=== PATIENT | male | born 1965 | race Caucasian/White ===

== ENCOUNTER 2020-04-18 10:24 | Outpatient (REF) | payer OTHER, SELFPAY ==
--- NOTE | 2020-04-18 15:58 | XR_ITS ---
EXAMINATION: XR ABDOMEN KUB CLINICAL INDICATION: Renal stone COMPARISON: Previous abdominal ultrasound November 2018 TECHNIQUE: AP view of the abdomen. FINDINGS: Evaluation for renal stone is limited due to overlying bowel gas, particularly on the left. No renal stone is seen. There are several bilateral small pelvic calcifications probably representing calcified phleboliths. Bowel gas pattern and bony structures are unremarkable. XR/XR KUB IMPRESSION: No stone seen.
== END 2020-04-18 10:25 | disposition home or self-care (01) ==
LOC: HO.XRAY 10:24
PROVIDERS: PCP Family Medicine; Visit Provider Urology
DX: N20.0 Calculus of kidney (principal)
CPT/HCPCS: 74018

== ENCOUNTER 2020-05-03 06:11 | Day surgery (SDC) | payer OTHER, SELFPAY ==
[2020-04-24 19:16] VITALS: BMI 26.6
--- NOTE | 2020-05-02 10:35 | HO.ANESPROP2 ---
Documented by User: Kristyn Oneill 05/02/20 10:36 HPI - Anesthesia Eval Consult details Narrative: 54yo M for L ESWL No prev ESWL on record [facility] Past Medical History Medical History Back pain Depression Diabetes Elevated cholesterol Hypertension Surgical History Surgical History History of colonoscopy Social History Social History Smoking Status: Never smoker Second Hand Smoke Exposure: No Use of substances other than those prescribed or required for medical reasons: No Advance Directives: No Advance Directives Information Provided: No Advance Directives on File: No Recently lost weight without trying: No Meds Allergies Allergy/AdvReac Type Severity Reaction Status Date / Time No Known Allergies Allergy Verified 04/18/20 10:26 Home Medications Medication Instructions Recorded Confirmed Type amlodipine 5 mg tablet 5 mg PO DAILY 04/18/20 04/24/20 History bupropion HCl 150 mg tablet,12 hr 150 mg PO QAM 04/18/20 04/24/20 History sustained-release gabapentin 600 mg tablet 600 mg PO DAILY 04/18/20 04/24/20 History insulin glargine 100 unit/mL (3 14 unit SUBCUT BEDTIME 04/18/20 04/24/20 History mL) subcutaneous pen lisinopril 40 mg tablet 40 mg PO DAILY 04/18/20 04/24/20 History metformin 500 mg tablet 500 mg PO BID 04/18/20 04/24/20 History pravastatin 20 mg tablet 20 mg PO DAILY 04/18/20 04/24/20 History Exam Exam Date and Time: May 02, 2020 1035 Height,Weight and Vital Signs: Height 5 ft 8 in Weight 79.379 kg Assessment and Plan Assessment Anesthesia Assessment: Chart Reviewed Documented by User: Eulalia Mojica 05/03/20 07:49 [facility] Past Medical History Medical History Back pain Depression Diabetes Elevated cholesterol Hypertension Surgical History Surgical History History of colonoscopy Social History Social History Smoking Status: Never smoker Second Hand Smoke Exposure: No Use of substances other than those prescribed or required for medical reasons: No Advance Directives: No Advance Directives Information Provided: No Advance Directives on File: No Recently lost weight without trying: No Meds Allergies Allergy/AdvReac Type Severity Reaction Status Date / Time No Known Allergies Allergy Verified 04/18/20 10:26 Home Medications Medication Instructions Recorded Confirmed Type amlodipine 5 mg tablet 5 mg PO DAILY 04/18/20 04/24/20 History bupropion HCl 150 mg tablet,12 hr 150 mg PO QAM 04/18/20 04/24/20 History sustained-release gabapentin 600 mg tablet 600 mg PO DAILY 04/18/20 04/24/20 History insulin glargine 100 unit/mL (3 14 unit SUBCUT BEDTIME 04/18/20 04/24/20 History mL) subcutaneous pen lisinopril 40 mg tablet 40 mg PO DAILY 04/18/20 04/24/20 History metformin 500 mg tablet 500 mg PO BID 04/18/20 04/24/20 History pravastatin 20 mg tablet 20 mg PO DAILY 04/18/20 04/24/20 History Exam Airway Mallampati Class: II TM Dist: >3cm Neck ROM: Full Assessment and Plan Assessment Anesthesia Assessment: Anesthesia Plan Discussed and Chart Reviewed Final Anesthetic Review NPO: Yes ASA Class: II Final Preanesthetic Review: No Changes in Pt Med Stat, Meds/Allgs Chart Reviewed, Consent Obtained/Reviewed and Anes Risks/Benef Reviewed Patient Risk: Low Procedure Risk: Low Assessment/Block/Sedation in SS: Assess/Block/Sedation-SS Anesthetic Plan Anesthetic Plan: MAC: Disposition: Standard PACU
--- NOTE | 2020-05-03 06:30 | XR_ITS ---
EXAMINATION: XR ABDOMEN KUB CLINICAL INDICATION: Left renal stone COMPARISON: Radiograph 04/18/2020 TECHNIQUE: AP view of the abdomen. FINDINGS: Nonobstructive bowel gas pattern. Diffuse stool throughout the colon with large stool burden. No suspicious calcifications overlie the expected position of either kidney or ureter. The presence of extensive stool does limit visualization. No acute osseous abnormality. XR/XR KUB IMPRESSION: Large colonic stool burden. This limits visualization of calcifications. No definite renal or ureteral calculi are seen.
[2020-05-03 06:53] VITALS: BP 153/99; PULSE 73; RESP 18; TEMP 36.1; O2SAT 98
[2020-05-03] MEDS: Lactated Ringers 1,000 ML 100 ML IVCONT (07:02)
[2020-05-03 07:13] LABS: Glucose, Whole Blood 127 mg/dL (60-115)
--- NOTE | 2020-05-03 07:23 | MHC.SHP ---
Pre-Procedural Eval Section A The patient is an INPATIENT: No Changes since office visit: No Cold of Flu in the past 2 weeks, No New Medical Problems, No Changes in Medication and No Patient answered all questions The History & Physical has been completed within 30 days and I have reviewed it.: Yes Section B Chief Complaint: kidney stone Allergies: Allergies Allergy/AdvReac Type Severity Reaction Status Date / Time No Known Allergies Allergy Verified 04/18/20 10:26 Plan Diagnosis/Plan: Unchanged I have reviewed the history and physical and performed a pertinent physical examination on my patient. No changes have occurred unless specified. Left ESWL
--- NOTE | 2020-05-03 08:39 | PM.OP ---
Brief Operative Note Date of Service: 05/03/20 Pre-op diagnosis: Left renal stone Post-op diagnosis: same Procedure: Left ESWL Surgeon: Van Yousif MD Anesthesia: MAC Estimated blood loss (mL): 0 Pathology: none sent Condition: stable Disposition: same day
--- NOTE | 2020-05-03 08:40 | W.PM.OPN ---
Operative Note Operative Note Date of Service: 05/03/20 Narrative: PreOperative Diagnosis: Left Renal stones Post Operative Diagnosis: Left Renal stones Procedure: Left ESWL Surgeon: Dr Van Yousif Anesthesia: mac/sedation Indications for procedure: They understand ESWL may be a staged procedure and subsequent intervention may be required based on imaging after ESWL. They also understand there is a risk of bleeding, infection, damage to adjacent organs. Procedure: After informed consent was verified the patient was brought to the operating room and placed in a supine position. Anesthesia was performed per protocol. Safety pause time-out was performed. Imaging was in the room and laterality confirmed. ESWL was performed. The 1st 500 shocks were performed at 60 hertz. These were performed with increasing power. Once maximum power was reached the rate was increased to 180 hertz. A total of 2500 shocks were given. Fluoroscopy showed stone disintegration. They tolerated procedure well and was transferred to the recovery area upon completion. 8 mm left lower pole stone
[2020-05-03 08:45] VITALS: BP 124/77; PULSE 58; RESP 16; TEMP 37; O2SAT 94
[2020-05-03 09:00] VITALS: BP 113/65; PULSE 55; RESP 20; O2SAT 96
--- NOTE | 2020-05-03 09:28 | HO.POSTANES ---
Post Anesthesia Evaluation Post Anesthesia Evaluation Vital Signs: Vital Signs Temp Pulse Resp BP Pulse Ox 05/03/20 09:00 98.6 F 55 20 113/65 96 05/03/20 08:45 98.6 F 58 16 124/77 94 05/03/20 06:53 97 F 73 18 153/99 H 98 Anesthesia: Monitored Mental Status: Awake Pain Control: Satisfactory Nausea/Vomiting: None Hydration: Adequate Anesthesia-Related Issues: No Anes. Related Issues
== END 2020-05-03 09:30 | disposition home or self-care (01) ==
PROVIDERS: PCP Family Medicine; Visit Provider Urology
PROC: (CPT 50590; principal; 2020-05-03 08:10)
DX: N20.0 Calculus of kidney (principal); I10 Essential (primary) hypertension; E11.9 Type 2 diabetes mellitus without complications; Z79.4 Long term (current) use of insulin; Z79.899 Other long term (current) drug therapy
CPT/HCPCS: 50590; 74018; 82947; J3010

== ENCOUNTER 2020-05-18 16:19 | Outpatient (REF) | payer OTHER, SELFPAY ==
--- NOTE | 2020-05-18 16:21 | US_ITS ---
EXAMINATION: US RETROPERITONEAL LIMITED (RENAL ONLY) CLINICAL INFORMATION: Calculus of kidney. COMPARISON: KUB 10/21/2020 and 04/18/2020. Ultrasound abdomen complete 12/23/2018. TECHNIQUE: Real-time imaging of the kidneys. FINDINGS: RIGHT KIDNEY: 12.8 x 5.6 x 5.4 cm (SAG x AP x TRV). The kidney is normal in size, contour, and echogenicity. Renal cortical thickness is normal. No focal parenchymal lesions or hydronephrosis. There is an echogenic stone in the midpole measuring 0.3 x 0.2 cm. There are a few calcified vessels noted. LEFT KIDNEY: 12.4 x 5.4 x 5.4 cm (SAG x AP x TRV). The kidney is normal in size, contour, and echogenicity. Renal cortical thickness is normal. No focal parenchymal lesions or hydronephrosis. There are small several echogenic stones with the largest echogenic stone midpole measuring 1.0 x 0.5 cm. There are a few scattered calcified vessels visualized. US/US renal BI IMPRESSION: Nonobstructive bilateral echogenic stones. No caliectasis or hydronephrosis seen.
== END 2020-05-18 16:20 | disposition home or self-care (01) ==
LOC: HO.US 16:19
PROVIDERS: Visit Provider Urology
DX: N20.0 Calculus of kidney (principal)
CPT/HCPCS: 76775

== ENCOUNTER 2024-08-23 08:51 | Day surgery (SDC) | payer OTHER, SELFPAY ==
[2024-08-19 13:55] VITALS: BMI 24.6
[2024-08-23 09:02] VITALS: BMI 24.6
[2024-08-23] MEDS: Lactated Ringers 1,000 ML 80 ML IVCONT (09:09)
--- NOTE | 2024-08-23 09:12 | P.CONAN_ITS ---
[facility] Active Problems Active Problems: All Active Problems Nephrolithiasis (Acute) Past Medical History Medical History Back pain Diabetes Depression Elevated cholesterol Hypertension Family History Family history of problems with anesthesia: No Surgical History Surgical History Hx of lithotripsy History of colonoscopy History of Problems with Anesthesia: No Social History Social History (Updated 08/19/24 @ 13:55 by Loan Pelletier RN) Are you a primary healthcare management consultant to a significant other at home: No Do you presently have visiting nurse or other home services: No Patient Tobacco Use Status: Never used Tobacco Second Hand Smoke Exposure: No Have you been hit, kicked, punched, or otherwise hurt by someone within the past year? If so, by whom?: No Are you DNR?: No Advance Directives: No Advance Directives Information Provided: Yes Poor oral hygiene: No Meds Allergies Allergy/AdvReac Type Severity Reaction Status Date / Time No Known Allergies Allergy Verified 08/23/24 09:04 Active Medications: Current Medications Lactated Ringer's (Lr) 1,000 mls @ 80 mls/hr IVCONT .[id number] FADIA Last Admin: 08/23/24 09:09 Dose: 80 mls/hr Sodium Biphosphate/Sodium Phosphate (Sodium Phosphate,Roberts-Dibasic 133 Ml Enema) 133 ml NC ONCE PRN PRN Reason: Poor Colonoscopy Prep Results Home Medications ?Medication ?Instructions ?Recorded ?Confirmed ?Last Taken ?Type amlodipine 5 mg tablet 5 mg PO DAILY 04/18/20 08/19/24 Unknown History bupropion HCl 150 mg tablet,12 hr 150 mg PO QAM 04/18/20 08/19/24 Unknown History sustained-release gabapentin 600 mg tablet 600 mg PO DAILY 04/18/20 08/19/24 Unknown History lisinopril 40 mg tablet 40 mg PO DAILY 04/18/20 08/19/24 Unknown History metformin 500 mg tablet 500 mg PO BID 04/18/20 08/19/24 Unknown History pravastatin 20 mg tablet 20 mg PO DAILY 04/18/20 08/19/24 Unknown History aspirin 81 mg tablet,delayed 81 mg PO DAILY 08/19/24 08/19/24 Unknown History release hydrochlorothiazide 12.5 mg tablet 12.5 mg PO QAM 08/19/24 08/19/24 Unknown H istory semaglutide 1 mg/dose (4 mg/3 mL) 1 mg subcut QWEEK 08/19/24 08/19/24 08/15/24 History subcutaneous pen injector (Ozempic) Exam Height,Weight and Vital Signs: Height 5 ft 8 in Weight 73.482 kg Airway Mallampati Class: II TM Dist: >3cm Neck ROM: Full Assessment and Plan Assessment Anesthesia Assessment: Anesthesia Plan Discussed and Chart Reviewed Final Anesthetic Review Family History of Problems with Anesthesia: No History of Problems with Anesthesia: No NPO: Yes ASA Class: III Final Preanesthetic Review: No Changes in Pt Med Stat, Meds/Allgs Chart Reviewed, Consent Obtained/Reviewed and Anes Risks/Benef Reviewed Patient Risk: Intermediate Procedure Risk: Low Anesthetic Plan Anesthetic Plan: TIVA Disposition: Standard PACU
[2024-08-23 09:19] VITALS: BP 143/90; PULSE 86; RESP 18; TEMP 36.6; O2SAT 99
[2024-08-23 09:19] LABS: Glucose, Whole Blood 107 mg/dL (60-115)
--- OUTSIDE RECORDS SUMMARY | 2024-08-23 09:22 | XMS_ITS | Clinical Summary ---
Author Organization [facility] Address [address] [id number] Care Team Providers Care Cemetery Worker Name Role Phone Kory Dotson MD Primary Care Provider [phone] Guerita North Unavailable Kory Dotson MD Unavailable [phone] Allergies Active Allergy Reactions Criticality Noted Date Comments Seasonal Cough 12/19/2023 Medications buPROPion ER (WELLBUTRIN XL) 150 MG 24 hr tablet 4 Active Coenzyme Q10 (Co Q 10) 100 MG capsule 300 mg. Active Misc Natural Products (Glucosamine Chondroitin MSM) Tab as directed Orally twice a day Active Vitamin E (VITAMIN E) 400 units capsule 1 capsule. Activ e Magnesium 500 MG Cap Take by mouth. Active [place] 450 MG Cap Take 500 mg by mouth. Active Ozempic, 1 MG/DOSE, 4 MG/3ML prefilled pen Inject 1 (one) mg under the skin 1 (one) time per week 9 mL 3 4 07/01/19 26 Active hydroCHLOROthiaz eliana (HYDRODIURIL) 12.5 MG tablet Take one tablet (12.5 mg total) by mouth 1 (one) time each day. 90 tablet 3 4 Active amLODIPine Besylate (NORVASC) 10 MG tablet Take one tablet (10 mg total) by mouth 1 (one) time each day. 90 tablet 3 4 Active Pravastatin Sodium (PRAVACHOL) 20 MG tablet Take one tablet (20 mg total) by mouth 1 (one) time each day. 90 tablet 3 4 Active Lisinopril (PRINIVIL,ZESTRI L) 40 MG tablet Take one tablet (40 mg total) by mouth 1 (one) time each day. 90 tablet 5 Active metFORMIN HCl (GLUCOPHAGE) 500 MG tablet Take one tablet (500 mg total) by mouth 2 (two) times a day with meals. 180 tablet 5 Active Gabapentin (NEURONTIN) 600 MG tablet Take one tablet (600 mg total) by mouth 1 (one) time each day. 90 tablet 5 Active Active Problems Problem Noted Date Diagnosed Date Chronic dermatitis 12/19/2023 Overview (12/19/2023): Scalp lesions. Paresthesia 12/19/2023 Overview (12/19/2023): body generalized. Primary hypertension 12/14/2023 Type 2 diabetes mellitus wit hout complication, without long-term current use of insulin 12/14/2023 Gastroesophageal reflux disease without esophagi tis 12/14/2023 Other hyperlipidemia 12/14/2023 Thrombocytopenia 12/14/2023 Left renal stone 12/14/2023 Overview (12/14/2023): S/p ESWL Social anxiety disorder 12/14/2023 ED (erectile dysfunction) 12/14/2023 Colon cancer screening 12/14/2023 Overview (06/25/2024): 08/2018. Next in [address] Napoles. Scheduled for 07/2024 Encounters Date Type Department Care Team Description 06/25/2024 12:30 PM EST CPE - Comprehensive Physical Exam [facility] Care [address] [place] [phone] Kory Dotson MD Encounter for preventive health examination (Primary Dx); Colon cancer screening; Type 2 diabetes mellitus without complication, without long-term current use of insulin; Primary hypertension 06/21/2024 Refill [facility] [address] [place] [address] Kory Dotson MD Refill Request 06/18/2024 Refill [facility] Care [place] [phone] Kory Dotson MD Refill Request from Last 3 Months Immunizations Name Administration Dates Next Due Influenza,MDCK,trivalent,PF (Flucelvax) 03/19/20 Influenza,seasonal,trivalent ,preservative (FLUZONE MDV) 03/03/2018 Tdap 12/19/2023 Zoster (Shingrix) 03/19/2024,12/19/2023 Family History Medical History Relation Name Comments IG A NEPHROPATHY Brother Heart Disorder Father Heart Disorder Maternal grandfather Heart Disorder Maternal uncle Thyroid Disorder Mother Relation Name Status Comments Brother Alive Father Maternal grandfather Maternal uncle Alive Mother Alive Social History Tobacco Use Types Packs/Day Years Used Date Smoking Tobacco: Never Smokeless Tobacco: Never Tobacco Cessation:Counseling Given: Not Answered Alcohol Use Standard Drinks/Week Comments Yes 0 (1 standard drink = 0.6 oz pur e alcohol) 1 drink a night PHQ-2 Answer Date Recorded PHQ-2 Score 1 06/25/2024 PHQ-9 Answer Date Recorded PHQ-9 Score 1 06/25/2024 Sex and Gender Information Value Date Recorded Sex Assigned at Male 03/18/2024 1:45 PM EST Legal Sex Male 11:56 AM EDT Gender Identity Male 03/18/2024 1:45 PM EST Sexual Orientation Straight 03/18/2024 1: 45 PM EST 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 Not on file Not on file Not on file Last Filed Vital Signs Vital Sign Reading Time Taken Comments Blood Pressure 132/88 06/25/2024 12:29 PM EST Pulse 80 06/25/2024 12:29 PM EST Temperature 36.3 ??C (97.4 ??F) 06/25/2024 12:[address] Respiratory Rate 16 06/25/2024 12:29 PM EST Oxygen Saturation - - Inhaled Oxygen Concentration - - Weight 71.8 kg (158 lb 3.2 oz) 06/25/2024 12:29 PM EST Height 172.7 cm (5' 8 ) 06/25/2024 12:29 PM EST Body Mass Index 24.05 06/25/2024 12:29 PM EST Plan of Treatment Upcoming Encounters Date Type Department Care Team (Latest Contact Info) Description 10/15/2024 3:30 PM EDT Office Visit [facility] [address] [facility] [place] [address] Kory Dotson MD [address] [place] [address] 4 MO F/U-Diabetes 07/01/2025 2:00 PM EST CPE - Comprehensive Physical Exam [facility] [address] [facility] [place] [address] Kory Dotson MD [address] [place] [address] PE Health Maintenance Due Date Last Done Comments Hepatitis C Screening 1965 Eye/Retina Exam 08/03/1985 GFR 08/03/1985 LDL Cholesterol 08/03/1985 Hep B (1 of 3 - 19+ 3-dose series) 08/03/1986 Pneumococcal 50+ years (1 of 2 - PCV) 08/03/1986 Colon Cancer Screening 08/03/2012 COVID-19 Vaccine (2023-2 5 season) 2023 HA1C 07/18/2024 01/19/2024, 12/19/2023 Microalbumin 01/19/2025 01/20/2024 DTaP/Tdap/Td (2 - Td or Tdap) 12/18/2033 12/19/2023 Influenza Completed 03/19/2024, 12/16/2023, 03/03/2018 Zoster (Shingrix) Completed 03/19/2024, 12/19/2023 Physical Discontinued 06/25/2024 HPV Vaccine Aged Out No longer eligi ble based on patient's age to complete this topic Hep A Aged Out No longer eligi ble based on patient's age to complete this topic Hib Aged Out No longer eligi ble based on patient's age to complete this topic Meningococcal ACWY Aged Out No longer eligible based on patient's age to complete this topic Goals Goal Patient Goal Type Associated Problems Recent Progress Patient-Stated? Author Blood Pressure < 140/90 Blood Pressure 132/88(06/25 12:29 PM EST) Jocelynn Ayala MA Note: Above is your goal for blood pressure control. You may be able to prevent, reduce or eliminate the medication required for your blood pressure by regular measurement of your blood pressure at home, since home readings are often more reliable than measurements at the doctor? s office. You can also improve your blood pressure by getting regular exercise, keeping a normal weight, reducing your sodium/salt intake to 2000 mg/day, reducing caffeine and by limiting your alcohol intake. Men should limit consumption to no more than 2 drinks per day (beer, wine, or mixed drinks) and women should limit to one drink per day. Follow the DASH diet, a diet low in fat, cholesterol, red meat, and sweets. It emphasizes fruits, vegetables, and low-fat dairy foods. The DASH diet also includes whole-grain products, fish, poultry, and nuts. HEMOGLOBIN A1C % < 7 Result Component 6.1(01/19/20 12:00 AM EDT) Jocelynn Ayala MA Note: Above is your goal for sugar control. Your risk for future diabetic complications such as blindness and amputation can be reduced by following your diabetic diet plan, and paying careful attention to self-monitoring your blood sugar and blood pressure at home. Please plan to check your blood sugar and blood pressure at the frequency suggested, and bring these numbers with you to your next scheduled visit. If you have difficulty reaching the goals which you have set for your diabetes your PCP can refer to one of our diabetes self-management support programs. A fasting blood sugar below 120 is ideal. Procedures Procedure Name Priority Date/Time Associated Diagnosis Comments ALBUMIN (MICROALBUMIN), RANDOM URINE, WITH CREATININE Routine 01/20/2024 HEMOGLOBIN A1C Routine 01/19/2024 from Last 3 Months or Most Recently Relevant to Health Maintenance Results * ALBUMIN (MICROALBUMIN), RANDOM URINE, WITH CREATININE (01/20/2024) CREATININE (URINE) 90.2 Microalbumin (Urine) 21.9 MICROALBUMIN/CREA T RATIO (URINE) 24.3 01/20/2024 us Unknown Provider LABORATORY Final Result * HEMOGLOBIN A1C (01/19/2024) Hemoglobin A1C 6.1 GLUCOSE MEAN VALUE 01/19/2024 us Unknown Provider LABORATORY Final Result from Last 3 Months or Most Recently Relevant to Health Maintenance Insurance [employer] Care Teams Cemetery Worker Relationship Specialty Start Date End Date Kory Dotson MD [address] [place] [address] PCP - General Family Medicine 08/22/23 Kory Dotson MD [address] [place] [address] PCP - Backup PCP Family Medicine 06/25/24 Guerita North [facility] [address] [place] [id number] Family Medicine 12/19/23 Dr. Ghanshyam Cintron [address] [place] [id number] (Jcpe) Highway Maintainer 06/29/24
--- OUTSIDE RECORDS SUMMARY | 2024-08-23 09:22 | XMS_ITS | Encounter Summary ---
Author Organization [facility] Address [address] [place] [address] Care Team Providers Care Battery Recharger Name Role Phone Kory Dotson MD Primary Care Provider [phone] Guerita North Unavailable Kory Dotson MD Unavailable [phone] Encounter Details Date Type Department Care Team (Late st Contact Info) Description 01/20/2024 Orders Only [facility] Primary Care [address] [place] [address] Kory Dotson MD [address] [place] [address] Social History Tobacco Use Types Packs/Day Years Used Date Smoking Tobacco: Never Smokeless Tobacco: Never Alcohol Use Standard Drinks/Week Comments Yes 0 (1 standard drink = 0.6 oz pur e alcohol) 1 drink a night Sex and Gender Information Value Date Recorded Sex Assigned at Male 03/18/2024 1:45 PM EST Legal Sex Male 11:56 AM EDT Gender Identity Male 03/18/2024 1:45 PM EST Sexual Orientation Straight 03/18/2024 1: 45 PM EST documented as of this encounter Plan of Treatment Upcoming Encounters Date Type Department Care Team (Latest Contact Info) Description 10/15/2024 3:30 PM EDT Office Visit [facility] [address] [place] [address] Kory Dotson MD [address] [place] [address] 4 MO F/U-Diabetes 07/01/2025 2:00 PM EST CPE - Comprehensive Physical Exam [facility] Care [address] [place] [address] Kory Dotson MD [address] [place] [address] PE Scheduled Orders Name Type Priority Associated Diagnoses Orde r Schedule ALBUMIN (MICROALBUMIN), RANDOM URINE, WITH CREATININE Lab Routine Type 2 diabetes mellitus without complication, without long-term current use of insulin Expected: 06/10/2024 (Approximate), Expires: 03/19/2025 HEMOGLOBIN A1C Lab Routine Type 2 diabetes mellitus without complication, without long-term current use of insulin Expected: 06/10/2024 (Approximate), Expires: 03/19/2025 LIPID PANEL WITH REFLEX TO DIRECT LDL Lab Routine Type 2 diabetes mellitus without complication, without long-term current use of insulin Expected: 06/10/2024, Expires: 03/19/2025 BASIC METABOLIC PANEL WITH (GFR) Lab Routine Type 2 diabetes mellitus without complication, without long-term current use of insulin Expected: 06/10/2024, Expires: 03/19/2025 documented as of this encounter Goals Goal Patient Goal Type Associated Problems [...] fasting blood sugar below 120 is ideal. documented as of this encounter Procedures Procedure Name Priority Date/Time Associated Diagnosis Comments ALBUMIN (MICROALBUMIN), RANDOM URINE, WITH CREATININE Routine 01/20/2024 HEMOGLOBIN A1C Routine 01/19/2024 documented in this encounter Results * ALBUMIN (MICROALBUMIN), RANDOM URINE, WITH CREATININE (01/20/2024) CREATININE (URINE) 90.2 Microalbumin (Urine) 21.9 MICROALBUMIN/CREA T RATIO (URINE) 24.3 01/20/2024 us Unknown Provider LABORATORY Final Result * HEMOGLOBIN A1C (01/19/2024) Hemoglobin A1C 6.1 GLUCOSE MEAN VALUE 01/19/2024 us Unknown Provider LABORATORY Final Result documented in this encounter Visit Diagnoses Diagnosis Type 2 diabetes mellitus without complication, without long-term current use of insulin (HCC) documented in this encounter Care Teams Battery Recharger Relationship Specialty Start Date End Date Kory Dotson MD [address] [place], [place] [phone] PCP - General Family Medicine 08/22/23 Kory Dotson MD [address] [place] [address] PCP - Backup PCP Family Medicine 06/25/24 Guerita North [address] [address] Family Medicine 12/19/23 Dr. Ghanshyam Cintron [address] [place] [id number] Assistant Director 06/29/24 documented as of this encounter
--- OUTSIDE RECORDS SUMMARY | 2024-08-23 09:22 | XMS_ITS ---
Author Name [facility] Organization Unknown Encounters Encounter Type Encounter Reason Primary Diagnosis Location Date Ambulatory [facility] 05/30 Ambulatory [facility] 02/27 Ambulatory [facility] 11/27 Ambulatory [facility] 11/26 Care Team Organization Name Specialty Phone Email Start Date End Da te [facility] 2023 [facility] 12/19/2023
--- OUTSIDE RECORDS SUMMARY | 2024-08-23 09:22 | XMS_ITS | Encounter Summary ---
Author Organization [facility] Address [address] [place] [address] Care Team Providers Care Workers Compensation Legal Secretary Name Role Phone Kory Dotson MD Primary Care Provider [phone] Guerita [place] Unavailable Kory Dotson MD Unavailable [phone] Encounter Details Date Type Department Care Team (Late st Contact Info) Description 03/22/2024 Orders Only [facility] [address] [place] [address] Kory Dotson MD [address] [place] [address] Medications Social History Tobacco Use Types Packs/Day Years [...] Description 10/15/2024 3:30 PM EDT Office Visit [facility] [address] [place] [address] Kory Dotson MD [address] [place] [address] 4 MO F/U-Diabetes 07/01/2025 2:00 PM EST CPE - Comprehensive Physical Exam [facility] [address] [place] [address] Kory Dotson MD [address] [place] [address] PE documented as of this encounter Goals Goal [...] is ideal. documented as of this encounter Visit Diagnoses Not on filedocumented in this encounter Care Teams Workers Compensation Legal Secretary Relationship Specialty Start Date End Date Kory Dotson MD [address] [place] [address] PCP - General Family Medicine 08/22/23 Kory Dotson MD [address] [place] [address] PCP - Backup PCP Family Medicine 06/25/24 Guerita [place] [address] [address] Family Medicine 12/19/23 Dr. Ghanshyam Cintron [address] [place] [id number] Decorating Supervisor 06/29/24 documented as of this encounter
[2024-08-23 10:43] VITALS: BP 105/71; PULSE 76; RESP 16; TEMP 36.1; O2SAT 94
--- NOTE | 2024-08-23 10:44 | PM.OP ---
Brief Operative Note Date of Service: 08/23/24 Pre-op diagnosis: Screening Post-op diagnosis: other (Polyp) Procedure: Colonoscopy to the cecum with bx/removal of polyp Surgeon: Avtar Napoles MD Anesthesia: MAC Was an Field Service Supervisor used for this Procedure?: No Estimated blood loss (mL): 2.0 Pathology: other (A. Cecal polyp) Condition: stable Disposition: PACU
[2024-08-23 10:57] VITALS: BP 119/97; PULSE 75; RESP 20; TEMP 36.2; O2SAT 99
--- NOTE | 2024-08-23 10:57 | OP_ITS ---
DATE OF SERVICE: 08/23/2024 SURGEON: Avtar Napoles MD INDICATIONS: The patient presents for evaluation of personal history of tubular adenoma of the colon and colorectal cancer screening. Full consent has been obtained from him for this, including risks of bleeding and perforation. PREOPERATIVE DIAGNOSIS: POSTOPERATIVE DIAGNOSIS: PROCEDURE PERFORMED: Colonoscopy to cecum with biopsy and removal of polyp. ESTIMATED BLOOD LOSS: COMPLICATIONS: ANESTHESIA: Monitored anesthesia care. ASSISTANTS: SPECIMENS: PREOPERATIVE DIAGNOSES: Colorectal cancer screening and personal history of tubular adenoma of the colon. POSTOPERATIVE DIAGNOSES: Colorectal cancer screening, personal history of tubular adenoma of the colon, small colon polyp, diverticulosis, and internal hemorrhoids. DESCRIPTION OF PROCEDURE: The patient was placed in the left lateral decubitus position. The digital rectal exam revealed no abnormalities. The Olympus video pediatric colonoscope was then entered into the rectum and advanced easily to the cecum. Once in the cecum, after a lot of irrigation and suctioning, I did visualize the cecal pouch with appendiceal orifice and a normal-appearing ileocecal valve. The entire cecum appeared normal other than a 3 mm polyp, which was biopsied and completely removed with the cold biopsy forceps. The scope was then slowly withdrawn assessing all mucosal surfaces carefully. There was transillumination of light deep in the right lower quadrant. Preparation was good throughout the colon, but did have some limited areas that required a lot of irrigation and suctioning. I did not visualize any other polyps, colitis, nor angiodysplasia. There was a mild amount of sigmoid diverticulosis. In the rectum, scope was retroflexed, visualizing some internal hemorrhoids, but no other pathology. The rectal mucosa appeared normal. The scope was straightened and withdrawn from the patient. He tolerated the procedure well and was returned to the recovery area in stable condition. IMPRESSION: 1. Small colon polyp. 2. Diverticulosis. 3. Internal hemorrhoids. PLAN: The results of the biopsy will be checked. I would recommend a repeat colonoscopy in 5 years for further screening. He will, otherwise, see me on a p.r.n. basis. MD ASHLEIGH Hassan/VICTOR M / [id number]
== END 2024-08-23 11:40 | disposition home or self-care (01) ==
PROVIDERS: Visit Provider Internal Medicine
PROC: 0DJD8ZZ Inspection of Lower Intestinal Tract, Via Natural or Artificial Opening Endoscopic (ICD-10-PCS; CPT 45378; principal; 2024-08-23 08:30)
DX: Z12.11 Encounter for screening for malignant neoplasm of colon (principal); D12.0 Benign neoplasm of cecum; K57.30 Diverticulosis of large intestine without perforation or abscess without bleeding; K64.8 Other hemorrhoids; Z86.0101 Personal history of adenomatous and serrated colon polyps; Z79.82 Long term (current) use of aspirin; Z79.84 Long term (current) use of oral hypoglycemic drugs; Z79.02 Long term (current) use of antithrombotics/antiplatelets
CPT/HCPCS: 45380; 82947; 88305; J2704